=== PATIENT | male | born 1980 | race Caucasian/White ===

== ENCOUNTER → 2016-04-19 | Day surgery (SDC) | payer OTHER ==
[~2016-04-19] MED LIST: BUPIVACAINE 0.25%-EPINEPHRINE 1:200,000 30 ML ONE; CEFAZOLIN 1 GM VIAL ONE; FENTANYL 100 MCG/2 ML VIAL IV ONE; FENTANYL 100 MCG/2 ML VIAL IV PRN; HYDROmorphone 1 MG INJECTION IV PRN; HYDROmorphone 2 MG/ML VIAL IM ONE; LABETALOL 20 MG/4 ML SYRINGE IV PRN; LIDOCAINE 100 MG PFS IV ONE; MEPERIDINE 25 MG/ML TUBEX IV PRN; MIDAZOLAM 2 MG/2 ML VIAL IV ONE; ONDANSETRON HCL 4 MG ODT TAB PO PRN; ONDANSETRON HCL 4 MG/2 ML VIAL IV ONE; ONDANSETRON HCL 4 MG/2 ML VIAL IV PRN; OXYCODONE HCL 5 MG TABLET ONE; PROPOFOL 200 MG/20 ML VIAL IV ONE; hydrALAZINE 20 MG/ML VIAL IV PRN
--- NOTE | 2016-04-19 09:07 | HIM.ANES ---
Anesthesia Evaluation & Plan Diagnoses: UNIL INGUINAL HERNIA, W/O OBST OR GANGR, NOT SPCF RECUR (04/19/16) Consented Procedure: RIGHT INGUINAL HERNIA REPAIR WITH MESH - Focused Review of Systems Cardiac History: No: Hx Cardiac Disorders HEENT: Yes: Loose/Decaying Teeth No: Other HEENT Problems Gastrointestinal: Yes: Hx Gastrointestinal Disorders Neurological/Musculoskeletal: Yes: Hx Back Pain (LUMBAR) No: Hx Neurological Disorders Psychological: No Hx Mental/Emotional Disorders Blood/Autoimmune: No: Hx AIDS, Hx Hepatitis (type) Smoking Status: Former smoker (quit September 2015) - Focused Physical Exam NPO since: 04/18/16 2300 Mallampati: Class I Thyromental Distance: Greater than 3 Neck: Full Range of Motion Dental: Normal - no significant findings Cardiovascular/Chest: Normal (RRR no mumurs or rubs.) Respiratory: Lungs clear. negative: Rhonchi, Wheezing Any problems with anesthesia, including nausea and vomiting?: No Any relatives with a history of Malignant Hyperthermia?: No Does patient have a history of Malignant Hyperthermia?: No Beta Sheila given (if appropriate): N/A Does the patient have a history of Motion Sickness-: No Other: Allergies Allergy/AdvReac Type Severity Reaction Status Date / Time brompheniramine Allergy Rash-Genera Verified 04/19/16 08:39 [From Dimetapp lized (brompheniramine-PPA)] phenylpropanolamine Allergy Rash-Genera Verified 04/19/16 08:39 [From Dimetapp lized (brompheniramine-PPA)] Home Medications Medication Instructions Recorded Last Taken Type Ibuprofen 800 mg PO TID PRN 04/14/16 04/17/16 History Tramadol HCl [Ultram] 50 mg PO BID PRN 04/14/16 Unknown History Height and Weight Patient's height 6 ft Patient's weight 77.111 kg Vital Signs Temperature 99.2 F 04/19/16 08:39 Pulse Rate 86 04/19/16 08:39 Respiratory Rate 18 04/19/16 08:39 Blood Pressure 111/78 04/19/16 08:39 Pulse Oxygen Saturation 96 04/19/16 08:39 METS - Level of Activity: Climbing stairs(1 flight),walking level ground, running short distance - Anesthetic Plan Anesthesia Type: General ASA Class: 2 -: I have examined this patient and reviewed the medical record. The patient has been assessed prior to anesthesia. Risks and benefits of anesthesia and anesthetic technique options have been discussed and all questions answered. The patient accepts the risk and desires me to proceed with the planned anesthetic.
[2016-04-19 12:04] VITALS: TEMP 98
[2016-04-19 14:02] VITALS: PULSE 72
--- NOTE | 2016-04-19 14:10 | HIMOPRPT ---
DATE OF PROCEDURE: 04/19/16 PREOPERATIVE DIAGNOSES: Symptomatic right inguinal hernia. POSTOPERATIVE DIAGNOSES: Same. PROCEDURES: Right inguinal hernia repair with mesh prosthesis. SURGEON: Carlos Eli MD ANESTHESIA: General. COMPLICATIONS: None. ESTIMATED BLOOD LOSS: Minimal. ANTIBIOTICS: Preoperative antibiotics given. INDICATIONS: The patient is a pleasant 35-year-old male who had been found to have a symptomatic right inguinal hernia. We evaluating felt he would benefit from inguinal hernia repair and explained the risks and benefits including the risk of infection, bleeding and anesthesia as well as a well-known risk of recurrence, testicular devascularization and nerve entrapment. He understood and agreed and was brought for the above-mentioned procedure. OPERATIVE NOTE: The patient was brought to the operating room and placed on the operating table in the supine position. After adequate amount of general anesthesia he was prepped and draped in sterile manner. When given the okay by anesthesia after appropriate time-out an incision in the right inguinal region was made through the skin subcutaneous tissues was scalpel dissection. Bleeding was controlled with Bovie cautery. Dissection was carried down through the subcutaneous tissues to the external oblique. Local anesthetic was infiltrated and then the external oblique was incised along the lines of fibers out through the external ring. The inguinal floor was dissected free without any problems. The cord structures were isolated and a Slemp drain placed around these. At that point we dissected out a large cord lipoma and an indirect inguinal hernia sac. These were both ligated with silk ligature and amputated. Hemostasis was assured and a piece of ultra Pro mesh was cut to size and sutured in in the usual manner. We used 0 Prolene to his suture the mesh to the shelving edge of Poupart's ligament and then another 1 tissue suture to the conjoined tendon. The keyhole defect was closed with 3 interrupted 0 Prolene sutures so that the cord structures were neither too tight nor too loose but the tip of the finger could go alongside. The wound was irrigated and hemostasis assured. The external oblique was then brought together with 3 0 Vicryl suture. Two layers of 3 0 Vicryl suture was used were used to bring the subcutaneous tissues together. Finally 4 0 Monocryl was used to bring the skin together and Dermabond tissue adhesive was applied and allowed to dry. The patient was awoke and taken recover room in excellent condition with correct sponge counts needle counts.
[2016-04-19 17:23] VITALS: BP 133/71
--- NOTE | 2016-04-19 17:23 | SC.ANESPOS ---
Post-Anesthesia Note LOC: Fully Awake Post-Anesthesia Assessment: Awake, Returned to Baseline, Hemodynamically Stable , Pain Control Adequate Phase I & II Recovery Complete: Yes Apparent Anesthesia Complication: No : N - Vital Signs Blood Pressure: 133/71 Pulse: 72 Resp Rate: 18 O2 Sat: 99 Temp: 98 F
== END ==
LOC: SDC 08:07
PROVIDERS: ATTEND Surgery
PROC: 0VBF0ZZ Excision of Right Spermatic Cord, Open Approach (ICD-10-PCS; 2016-04-19)
PROC: 0YU50JZ Supplement Right Inguinal Region with Synthetic Substitute, Open Approach (ICD-10-PCS; principal; 2016-04-19 09:50)
DX: K40.90 Unilateral inguinal hernia, without obstruction or gangrene, not specified as recurrent (principal); D17.6 Benign lipomatous neoplasm of spermatic cord; Z87.891 Personal history of nicotine dependence
CPT/HCPCS: 49505; 55520; C1781; J0690; J1170; J2001; J2250; J2405; J3010; J3490